=== PATIENT | male | born 1990 | race Caucasian/White ===

== ENCOUNTER 2020-08-13 22:36 | Emergency (ER) | payer OTHER ==
[~2020-08-13 22:36] MED LIST: CYCLOBENZAPRINE10 MG PO; ERYTHROMYCIN O3.5 GM OD; MUCINEX D ER 11 EACH PO
== END 2020-08-13 23:46 | disposition home or self-care (01) ==
LOC: ER1 22:36
DX: R00.2 Palpitations (principal); F17.210 Nicotine dependence, cigarettes, uncomplicated; Z88.6 Allergy status to analgesic agent
CPT/HCPCS: 93005; 99284

== ENCOUNTER 2020-09-17 17:13 | Emergency (ER) | payer OTHER ==
[2020-09-17] MEDS ORDERED: BACTROBAN OINT22 GM EXT (19:07)
[2020-09-17] MEDS ORDERED: TYLENOL325 MG PO (19:07)
[2020-09-17] MEDS ORDERED: CEPHALEXIN500 M1 PO (19:07)
== END 2020-09-17 19:13 | disposition home or self-care (01) ==
LOC: ER1 17:13
DX: T23.261A Burn of second degree of back of right hand, initial encounter (principal); T31.0 Burns involving less than 10% of body surface; F17.210 Nicotine dependence, cigarettes, uncomplicated; Z88.6 Allergy status to analgesic agent; X08.8XXA Exposure to other specified smoke, fire and flames, initial encounter; Y92.009 Unspecified place in unspecified non-institutional (private) residence as the place of occurrence of the external cause
CPT/HCPCS: 99283

== ENCOUNTER 2021-02-02 10:48 | Emergency (ER) | payer OTHER ==
[~2021-02-02 10:48] MED LIST changes: +BACTROBAN OINT22 GM EXT; +CEPHALEXIN500 M1 PO; +TYLENOL325 MG PO
[2021-02-02] MEDS ORDERED: IBUPROFEN600 MG PO (14:05)
== END 2021-02-02 14:00 | disposition home or self-care (01) ==
LOC: ER1 10:48
DX: S09.90XA Unspecified injury of head, initial encounter (principal); S13.9XXA Sprain of joints and ligaments of unspecified parts of neck, initial encounter; S33.5XXA Sprain of ligaments of lumbar spine, initial encounter; F17.200 Nicotine dependence, unspecified, uncomplicated; V49.9XXA Car occupant (driver) (passenger) injured in unspecified traffic accident, initial encounter; Y92.410 Unspecified street and highway as the place of occurrence of the external cause
CPT/HCPCS: 70450; 71045; 72125; 72131; 99284